=== PATIENT | male | born 1955 | race Caucasian/White ===

== ENCOUNTER 2018-06-03 04:02 | Emergency (ER) | payer BC ==
[~2018-06-03] VITALS: Ht 175.3 cm; Wt 83.9 kg
[2018-06-03 04:05] VITALS: BP 134/90
--- NOTE | 2018-06-03 04:35 | NUR ---
BIB SELF COMPLAINING OF LT SIDED HEADACHE X 1DAY. PT AA/OX4. SPEAKING FULL SENTENCES. AMBULATED TO BED WITH STABLE GAIT. MOVES ALL EXTREMETIES WELL. NO S/S SOB. SKIN PINK, WARM, DRY. EQUAL FACIAL SYMMETRY, AND ARCHITECTURAL [employer]ES [employer]ANT. NO TINNITUS. NO N/V. DENIES ANY DIZZINESS. NAD. VSS. WILL CONTINUE TO MONITOR.
[2018-06-03] MEDS ORDERED: SUMATRIPTAN SUCCINATE 6 MG/0.5 ML VIAL SQ ONE ×2 (05:00→05:02)
[2018-06-03] MEDS ORDERED: METOCLOPRAMIDE HCL 10 MG/2 ML VIAL IV ONE (05:00)
[2018-06-03] MEDS ORDERED: IV NS 0.9% 1,000 ML BAG IV ONE (05:00)
[2018-06-03] MEDS ORDERED: METOCLOPRAMIDE HCL 10 MG/2 ML VIAL ONE (05:02)
== END 2018-06-03 05:24 | disposition home or self-care (01) ==
LOC: ER 04:04
DX: G43.909 Migraine, unspecified, not intractable, without status migrainosus (principal)
CPT/HCPCS: 96372; 96374; 99284; A4606; J2765; J3030; J7030; Z7610